=== PATIENT | male | born 1935 | race Caucasian/White ===

== ENCOUNTER 2017-12-31 20:12 | Inpatient (IN) | payer OTHER ==
[~2017-12-31] VITALS: Ht 175.3 cm; Wt 104.4 kg
[2017-12-31] MEDS ORDERED: ALBUT/IPRATROP 3MG/0.5MG NEB 3 ML VIAL INH STA (20:23)
[2017-12-31] MEDS ORDERED: ACETAMINOPHEN 500 MG TAB PO STA (20:23)
--- NOTE | 2017-12-31 20:34 | EMERGENCY ROOM VISIT NOTE ---
History Report prepared by Sandie: Gagan Arndt Under the Supervision of: Dr. Sam Billings D.O. First contact with patient: 20:18 Chief Complaint: LETHARGIC Stated Complaint: SHAKING,LETHARGIC History of Present Illness The patient is a 82 year old male who presents to the Emergency Room with complaints of an episode of shaking that occurred today. He states that he used a rescue inhaler once today. The patient complains of shortness of breath and coughing with sputum. The patient denies nausea, vomiting, chest pain, and leg swelling. The patient notes that he has a history of pneumonia within the past two years, COPD, and hyperlipemia. He denies the use of blood thinners. The patient notes that he smokes cigars. Source of History: patient Onset: Today Position: arm (bilateral) Quality: other (shaking) Timing: other (episode) Associated Symptoms: + cough (with sputum), + SOB, No chest pain, No nausea , No vomiting Note: The patient denies leg swelling. Review of Systems See HPI for pertinent positives & negatives. A total of 10 systems reviewed and were otherwise negative. Past Medical & Surgical Medical Problems: (1) COPD (chronic obstructive pulmonary disease) (2) Hyperlipidemia (3) Pneumonia (4) Sepsis Social History Smoking Status: Current Some Day Smoker Current/Historical Medications Scheduled Atorvastatin (Lipitor), 20 MG PO DAILY Budesonide/Formoterol Fumarate (Symbicort 80/4.5 Inhaler), 2 PUFFS INH BID Scheduled PRN Albuterol Hfa (Ventolin Hfa), 2 PUFFS INH Q6H PRN for SOB/Wheezing Allergies Coded Allergies: No Known Allergies (Unverified , 12/31/17) Physical Exam Vital Signs Date Time Temp Pulse Resp B/P (MAP) Pulse Ox O2 Delivery O2 Flow Rate FiO2 12/31/17 23:19 87 17 102/63 95 Room Air 12/31/17 21:59 110 24 120/75 93 Room Air 12/31/17 21:20 37.7 128 24 113/70 93 Room Air 12/31/17 20:30 93 Room Air 12/31/17 20:28 123 12/31/17 20:13 38.5 126 18 124/64 94 Room Air Physical Exam GENERAL: Patient is awake and alert. Mildly anxious. Overall comfortable. EYES: The conjunctivae are clear. The pupils are round and reactive. EARS, NOSE, MOUTH AND THROAT: The nose is without any evidence of any deformity. Mucous membranes are moist. Tongue is midline NECK: The neck is nontender and supple. RESPIRATORY: Diminished throughout, left greater than right. Expiratory wheezes noted in both upper lung field. CARDIOVASCULAR: Tachycardic. Regular rhythm. No definitive murmur noted to osculation. GASTROINTESTINAL: The abdomen is soft. Bowel sounds are present in all quadrants. Abdomen is nontender. MUSCULOSKELETAL/EXTREMITIES: There is no evidence of gross deformity. Full range of motion is noted in the hips and shoulders. SKIN: There is no obvious evidence of any rash. There are no petechiae, pallor or cyanosis noted. NEUROLOGIC: Patient is awake alert and oriented x3. Medical Decision & Procedures ER Provider Diagnostic Interpretation: Radiology results as stated below per my review and radiologist interpretation: CHEST ONE VIEW PORTABLE CLINICAL HISTORY: Sepsis. COMPARISON STUDY: No previous studies for comparison. FINDINGS: Lung volumes are normal. There is no pneumothorax or pleural effusion. There is mild reticulonodular interstitial thickening. No consolidation is identified. Mild cardiomegaly is noted. Patient is mildly rotated. Mediastinal contours are unremarkable. IMPRESSION: 1. No consolidation identified. 2. Mild reticulonodular interstitial thickening. This finding is nonspecific and may be chronic however mild pulmonary edema edema or an infectious process could appear similar. Radiographic follow up is recommended. 3. Mild cardiomegaly. Electronically signed by: Davion Barragan M.D. 12/31/2017 8:43 PM Dictated Date/Time: 12/31/2017 8:42 PM Laboratory Results Test 12/31/17 20:40 12/31/17 20:50 12/31/17 20:57 12/31/17 21:02 Urine Color ORANGE Urine Appearance TURBID (CLEAR) Urine pH 5.0 (4.5-7.5) Urine Specific [place] 1.025 (1.000-1.030) Urine Protein 1+ (NEG) Urine Glucose (UA) NEG (NEG) Urine Ketones TRACE (NEG) Urine Occult Blood 1+ (NEG) Urine Nitrite POS (NEG) Urine Bilirubin NEG (NEG) Urine Urobilinogen NEG (NEG) Urine Leukocyte Esterase MODERATE (NEG) Urine WBC (Auto) >30 /hpf (0-5) Urine RBC (Auto) 5-10 /hpf (0-4) Urine Hyaline Casts (Auto) 5-10 /lpf (0-5) Urine Epithelial Cells (Auto) 20-30 /lpf (0-5) Urine Bacteria (Auto) 2+ (NEG) Erythrocyte Sedimentation Rate 42 mm/hr (0-14) Prothrombin Time 11.5 SECONDS (9.0-12.0) Prothromb Time International Ratio 1.1 (0.9-1.1) Activated Partial Thromboplast Time 27.8 SECONDS (21.0-31.0) Partial Thromboplastin Ratio 1.1 Estimated Average Glucose 120 mg/dl Hemoglobin A1c 5.8 % (4.5-5.6) Total Bilirubin 1.7 mg/dl (0.2-1) Aspartate Amino Transf (AST/SGOT) 17 U/L (15-37) Alanine Aminotransferase (ALT/SGPT) 25 U/L (12-78) Alkaline Phosphatase 66 U/L (45-117) Total Creatine Kinase 115 U/L (39-308) Creatine Kinase MB < 1.0 ng/ml (0.5-3.6) Creatine Kinase MB Ratio (0-3.0) Troponin I < 0.015 ng/ml (0-0.045) C-Reactive Protein 14.80 mg/dl (0-0.29) Total Protein 7.9 gm/dl (6.4-8.2) Albumin 3.6 gm/dl (3.4-5.0) Globulin 4.3 gm/dl (2.5-4.0) Albumin/Globulin Ratio 0.8 (0.9-2) Lipase 56 U/L (73-393) Thyroid Stimulating Hormone (TSH) 2.250 uIu/ml (0.300-4.500) Bedside Lactic Acid Venous 1.49 mmol/L (0.90-1.70) Venous Blood pH 7.49 (7.36-7.41) Venous Blood Partial Pressure CO2 32 mmHg (38.0-50.0) Venous Blood Partial Pressure O2 42 mmHg Venous Blood HCO3 23 mmol/L Venous Blood Oxygen Saturation 79.6 % Venous Blood Base Excess 0.8 mEq/L Laboratory results per my review. Medications Administered Medications (Trade) Dose Ordered Sig/Renata Route Start Time Stop Time Status Last Admin Dose Admin Acetaminophen (Tylenol Tab) 1,000 mg NOW STAT PO 12/31/17 20:23 12/31/17 20:24 DC 12/31/17 20:37 1,000 MG Albuterol/ Ipratropium (Duoneb) 3 ml NOW STAT INH 12/31/17 20:23 12/31/17 20:24 DC 12/31/17 20:36 3 ML Ceftriaxone Sodium (Rocephin Inj) 1 gm NOW STAT IV 12/31/17 21:07 12/31/17 21:08 DC 12/31/17 21:15 1 GM Sodium Chloride 1,000 ml @ 999 mls/hr Q1H1M STAT IV 12/31/17 21:24 12/31/17 22:24 DC 12/31/17 21:24 999 MLS/HR Magnesium Oxide (Mag-Ox Tab) 400 mg ONE STAT PO 12/31/17 21:50 12/31/17 21:51 DC 12/31/17 21:57 400 MG ECG Per My Interpretation Indication: SOB/dyspnea Rate (beats per minute): 138 Rhythm: sinus tachycardia Findings: other (Diffuse ST depression) Comparison ECG Date: no prior available ED Course 2019: The patient was evaluated in room C10. A complete history and physical examination were performed. 2219: Upon reevaluation, the patient is resting comfortably. I discussed results and treatment plan with him. He verbalizes agreement and understanding. I spoke with Dr. Rodriguez- [facility]. The patient will be evaluated for further management and care. Medical Decision Prior records/ancillary studies reviewed. Triage Nursing notes reviewed. Additional history obtained from the family. The patient's history was concerning for respiratory difficulties. Differential diagnosis: Etiologies such as infections, reactive airway disease, pneumonia, pneumothorax , COPD, CHF, cardiac ischemia, pulmonary embolism, musculoskeletal, gastrointestinal, as well as others were entertained. The patient is an 82-year-old male who presented to the emergency department for an evaluation of fever. The patient described an episode of chills that he had while he was with family members. His family member states he was having difficulty stopping the chills. He was found to have a fever in triage. The patient has a history of COPD and was complaining of cough but his chest x-ray does not appear to be consistent with pneumonia. He was started on IV antibiotics after his urinalysis appear to be consistent with urinary tract infection. I discussed the patient's laboratory and radiographic studies with him. He had persistent tachycardia despite being treated with IV fluids. I was very concerned this could represent an early bacteremia. This reason I discussed his case with the on-call [facility] hospitalist. They have agreed to evaluate patient in the emergency department for further management and disposition. The patient was reevaluated multiple times. Medication Reconcilliation Current Medication List: was personally reviewed by me Blood Pressure Screening Patient's blood pressure: Normal blood pressure Consults Time Called: [id number] Consulting Physician: Dr. [facility]- [facility]. Returned Call: [id number] 2218:I discussed the patient's case with I spoke with Dr. Rodriguez- [facility].. The patient will be evaluated for further management. Impression Primary Impression: UTI (urinary tract infection) Additional Impressions: Fever COPD exacerbation Tachycardia Scribe Attestation The scribe's documentation has been prepared under my direction and personally reviewed by me in its entirety. I confirm that the note above accurately reflects all work, treatment, procedures, and medical decision making performed by me. Departure Information Dispostion Being Evaluated By Hospitalist Referrals No Doctor, Assigned (PCP) Patient Instructions My [facility] Problem Qualifiers Primary Impression: UTI (urinary tract infection) Urinary tract infection type: acute pyelonephritis Qualified Codes: N10 - Acute pyelonephritis Additional Impressions: Fever Fever type: unspecified Qualified Codes: R50.9 - Fever, unspecified
--- NOTE | 2017-12-31 20:45 | DIAGNOSTIC IMAGING REPORT ---
CHEST ONE VIEW PORTABLE CLINICAL HISTORY: Sepsis. COMPARISON STUDY: No previous studies for comparison. FINDINGS: Lung volumes are normal. There is no pneumothorax or pleural effusion. There is mild reticulonodular interstitial thickening. No consolidation is identified. Mild cardiomegaly is noted. Patient is mildly rotated. Mediastinal contours are unremarkable. IMPRESSION: 1. No consolidation identified. 2. Mild reticulonodular interstitial thickening. This finding is nonspecific and may be chronic however mild pulmonary edema edema or an infectious process could appear similar. Radiographic follow up is recommended. 3. Mild cardiomegaly. Electronically signed by: Davion Barragan M.D. 12/31/2017 8:43 PM Dictated Date/Time: 12/31/2017 8:42 PM
[2017-12-31] MEDS ORDERED: VNTHFA/IN INH (21:06)
[2017-12-31] MEDS ORDERED: ATOR-22 PO (21:06)
[2017-12-31] MEDS ORDERED: SYMIN/8045 INH (21:06)
[2017-12-31] MEDS ORDERED: CEFTRIAXONE SOD INJ 1 GM ADDVIAL IV STA (21:07)
[2017-12-31 21:08] LABS: BASO % 0.2 %; BASO ABS # 0.02 K/uL (0-0.2); EOS % 0.2 %; EOS ABS # 0.02 K/uL (0-0.5); HEMATOCRIT 44.5 % (42-52); HEMOGLOBIN 15.6 g/dL (14.0-18.0); IG# 0.04 K/uL (0.00-0.02); LYMPH % 6.9 %; MEAN CELL VOLUME 88.6 fL (80-100); MEAN CORPUSCULAR HEMOGLOBIN 31.1 pg (25-34); MEAN CORPUSCULAR HGB CONC 35.1 g/dl (32-36); MEAN PLATELET VOLUME 10.2 fL (7.4-10.4); MONO % 7.7 %; MONO ABS # 0.89 K/uL (0.11-0.59); NEUT % 84.7 %; NEUT ABS # 9.86 K/uL (1.4-6.5); PLATELET COUNT 122 K/uL (130-400); RED CELL DISTRIBUTION WIDTH CV 13.5 % (11.5-14.5); RED CELL DISTRIBUTION WIDTH SD 44.2 fL (36.4-46.3); WHITE BLOOD COUNT 11.63 K/uL (4.8-10.8)
[2017-12-31 21:18] LABS: INR 1.1 (0.9-1.1); PTT PATIENT 27.8 SECONDS (21.0-31.0)
[2017-12-31] MEDS ORDERED: SODIUM CHLORIDE 0.9% 1000ML 1,000 ML IV STA (21:24)
[2017-12-31 21:31] LABS: ALBUMIN 3.6 gm/dl (3.4-5.0); ALKALINE PHOSPHATASE 66 U/L (45-117); ALT/SGPT 25 U/L (12-78); AST/SGOT 17 U/L (15-37); BLOOD UREA NITROGEN 34 mg/dl (7-18); CALCIUM 8.8 mg/dl (8.5-10.1); CARBON DIOXIDE 22 mmol/L (21-32); CKMB < 1.0 ng/ml (0.5-3.6); CREATININE 2.27 mg/dl (0.60-1.40); GLUCOSE 130 mg/dl (70-99); LIPASE 56 U/L (73-393); POTASSIUM 4.1 mmol/L (3.5-5.1); SODIUM 134 mmol/L (136-145); TOTAL PROTEIN 7.9 gm/dl (6.4-8.2)
[2017-12-31] MEDS ORDERED: MAGNESIUM OXIDE 400 MG TAB PO STA (21:50)
[2018-01-01] MEDS ORDERED: HYDROmorphone INJ 0.5 MG/0.5 ML SYR IV PRN (00:15)
[2018-01-01] MEDS ORDERED: PROCHLORPERAZINE INJ 5 MG in SYRINGE 4 ML IV PRN (00:15)
[2018-01-01] MEDS ORDERED: LEVALBUTEROL/IPRATROPIUM NEB INH PRN (00:15)
[2018-01-01] MEDS ORDERED: TRAMADOL HCL 50 MG TAB PO PRN (00:15)
[2018-01-01] MEDS ORDERED: SODIUM CHLORIDE 0.9% 1000ML 1,000 ML IV ONE (00:15)
[2018-01-01 01:00] VITALS: BP 116/69; PULSE 81; TEMP 36.6; O2SAT 93; Ht 175.3 cm; Wt 104.4 kg
[2018-01-01] MEDS ORDERED: PATIENT'S HEIGHT AND/OR WEIGHT NEEDED SCH (01:15)
[2018-01-01] MEDS ORDERED: LEVALBUTEROL 1.25MG/0.5ML NEB INH PRN (01:45)
[2018-01-01] MEDS ORDERED: IPRATROPIUM BROMIDE NEB SOLN 0.02% 2.5 ML VIAL INH PRN (01:45)
[2018-01-01] MEDS ORDERED: CEFEPIME IV 2,000 MG in SYRINGE 7.5 ML IV ONE (01:45)
--- NOTE | 2018-01-01 03:39 | HISTORY & PHYSICAL EXAMINATION ---
DATE OF ADMISSION: 12/31/2017 CHIEF COMPLAINT: Shaking PRIMARY CARE PHYSICIAN: Dr. Peace. HISTORY OF PRESENT ILLNESS: History obtained from patient, family, and records. Medical history is significant for hyperlipidemia, COPD, past tobacco abuse, chronic renal insufficiency (unknown baseline). Patient not feeling well in the last few days with dysuria, no hematuria, achy abdominal discomfort, gassy. No nausea, no emesis. Patient was eating ice cream with his girlfriend in his truck today when he had chills, noted to be shaking. No chest pain, no shortness of breath, no unusual cough symptoms. He was brought to the ER. Received Ceftriaxone for sepsis. MEDICAL HISTORY: As above. SURGERIES: Knee surgery. HOME MEDICATIONS: Include Ventolin, Lipitor, Symbicort. ALLERGIES: No known drug allergies. FAMILY HISTORY: Heart disease. PERSONAL AND SOCIAL HISTORY: Past tobacco abuse. Occasional alcoholic beverage intake. 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 REVIEW OF SYSTEMS: As per HPI, all 10 systems reviewed, all other ROS negative. PHYSICAL EXAMINATION: VITAL SIGNS: Blood pressure noted to be 113/70, pulse rate 126 later 90 RR 22 T 38.5 O2 sats 93 on room air GENERAL: Obese. Slightly anxious, in no respiratory distress. Slightly hard of hearing. SKIN: Normal color, warm. HEENT: Alopecia. Bunch palpebral conjunctivae, no ptosis. Dry mucosa. NECK: Short, supple. CHEST: Decreased effort. No tenderness. HEART: Regular rate and rhythm, no murmur. ABDOMEN: Some distention, nontender. EXTREMITIES: No LE edema. No gross deformities. No tenderness. NEUROLOGIC: Coherent. No gross focality except for mild hearing impairment. LABORATORY DATA: Hemoglobin was noted to be 15.6, WBC 11.6, platelet was noted to be 122. Sodium 134, potassium 4.0, BUN 30, creatinine 2.7, glucose 130, lactate was 1.49. UA, nitrite positive urine ketones. Chest x-ray showed interstitial thickening, cardiomegaly. ASSESSMENT: 1. Sepsis secondary to urinary tract infection. Rule out stone with abd discomfort 2. ARF, hx CRI as per patient (baseline unknown) 3. hyperlipidemia on statin therapy 4. COPD, past tobacco abuse. Pulmo status at baseline 5. Thrombocytopenia secondary to sepsis. 6. Hyperglycemia rule out DM PLAN: GMF CS, IV Cefepime for now. CT abdomen and pelvis. RE abdominal pain daily renal function. IVF check hemoglobin A1c, DVT prophylaxis, SCDs RE thrombocytopenia. Full code. MTDD
[2018-01-01 06:23] LABS: BASO % 0.2 %; BASO ABS # 0.02 K/uL (0-0.2); EOS % 0.5 %; EOS ABS # 0.06 K/uL (0-0.5); HEMATOCRIT 40.9 % (42-52); HEMOGLOBIN 13.4 g/dL (14.0-18.0); IG# 0.02 K/uL (0.00-0.02); LYMPH % 10.4 %; LYMPH ABS # 1.15 K/uL (1.2-3.4); MEAN CELL VOLUME 90.7 fL (80-100); MEAN CORPUSCULAR HEMOGLOBIN 29.7 pg (25-34); MEAN CORPUSCULAR HGB CONC 32.8 g/dl (32-36); MEAN PLATELET VOLUME 9.9 fL (7.4-10.4); MONO % 13.7 %; MONO ABS # 1.52 K/uL (0.11-0.59); NEUT ABS # 8.34 K/uL (1.4-6.5); PLATELET COUNT 107 K/uL (130-400); RED CELL DISTRIBUTION WIDTH CV 13.7 % (11.5-14.5); RED CELL DISTRIBUTION WIDTH SD 45.5 fL (36.4-46.3); WHITE BLOOD COUNT 11.11 K/uL (4.8-10.8)
--- NOTE | 2018-01-01 06:28 | DIAGNOSTIC IMAGING REPORT ---
ABD/PELVIS NO IV OR ORAL CONT CLINICAL HISTORY: 82 years-old Male presenting with abd pain/gas. TECHNIQUE: Multidetector CT of the abdomen and pelvis was performed without the use of intravenous contrast. IV contrast: None. A dose lowering technique was used consistent with the principles of ALARA (as low as reasonably achievable). COMPARISON: None. CT DOSE (mGy.cm): The estimated cumulative dose is 960.94 mGy.cm. FINDINGS: Engineering Administrator topogram: Unremarkable. Lung bases: Bronchial wall thickening. Trace interlobular septal thickening greater on the right. The pulmonary arteries are similar in diameter to the adjacent bronchi. Mosaic attenuation most prominent at the right lung base. Multichamber enlargement of the heart. Coronary artery and aortic valve calcification. No pericardial or pleural effusion. Liver: Normal morphology. Density consistent with hepatic steatosis. Biliary: No gross biliary ductal dilatation allowing for noncontrast technique. Gallbladder contains gallstones. Pancreas: Moderate parenchymal atrophy. Spleen: Normal noncontrast appearance. Adrenal glands: Normal noncontrast appearance. Kidneys and ureters: Nonspecific perinephric fat stranding. Normal noncontrast appearance. No nephrolithiasis. No hydronephrosis. Normal ureters. Bladder: Circumferential bladder wall thickening allowing for underdistention. Trace perivascular fat stranding. Pelvic organs: Prostate enlargement likely secondary to benign prostatic hyperplasia. Bowel: Diverticulosis of the sigmoid colon. No wall thickening or pericolonic inflammatory change. The appendix is normal. No bowel obstruction. Trace hilar hernia. Peritoneal cavity: No free fluid or intraperitoneal gas. Lymph nodes: No gross lymphadenopathy allowing for noncontrast technique. Vasculature: Atherosclerosis of the normal caliber abdominal aorta. Abdominal wall: Small fat-containing left inguinal hernia. Small fat-containing umbilical hernia. Musculoskeletal: Degenerative changes of the spine. Degenerative changes of the pubic symphysis and sacroiliac joints. IMPRESSION: 1. 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 Correlate with urinalysis to exclude cystitis. 2. Diverticulosis. No evidence of diverticulitis. 3. Cardiomegaly with mild congestive change greater in the right lung base than the left. Electronically signed by: Lenard Donaldson M.D. 01/01/2018 6:27 AM Dictated Date/Time: 01/01/2018 6:18 AM
[2018-01-01 06:50] LABS: CALCIUM 8.3 mg/dl (8.5-10.1); CREATININE 2.8 mg/dl (0.60-1.40); POTASSIUM 4.5 mmol/L (3.5-5.1)
[2018-01-01 06:58] LABS: HEMOGLOBIN A1C 5.8 % (4.5-5.6)
[2018-01-01 07:33] VITALS: BP 90/56; PULSE 70; TEMP 36.4; O2SAT 96
[2018-01-01] MEDS: ATORVASTATIN 20 MG TAB PO SCH (08:01)
[2018-01-01] MEDS: BUDESONIDE/FORMOTEROL FUMARATE 80/4.5 60 PUFFS/INHALER INH SCH ×2 (08:02→21:04)
[2018-01-01] MEDS ORDERED: CEFEPIME CONSULT ACTIVE PRN (09:00)
--- NOTE | 2018-01-01 14:38 | Progress Note ---
Medicine Progress Note Date & Time of Visit: Jan 01, 2018 at 14:38 . Subjective Admitted early this morning for urinary tract infection with sepsis. Feels better. Still experiencing urinary frequency and urgency, but no dysuria. . Objective Last 8 Hrs Date Time Temp Pulse Resp B/P (MAP) Pulse Ox O2 Delivery O2 Flow Rate FiO2 01/01/18 07:51 Room Air 01/01/18 07:33 36.4 70 20 90/56 (67) 96 Room Air Physical Exam: General- no distress Lungs- clear to auscultation; no respiratory distress Cardiovascular- RRR; no murmur or gallop appreciated; no JVD; no pretibial edema Abdomen- + bowel sounds, soft, nontender Extremities- no cyanosis; no calf tenderness Neuro- alert, oriented Skin- warm & dry . Laboratory Results: Last 24 Hours Test 12/31/17 20:40 12/31/17 20:50 12/31/17 20:57 12/31/17 21:02 Urine Color ORANGE Urine Appearance TURBID Urine pH 5.0 Urine Specific [place] 1.025 Urine Protein 1+ Urine Glucose (UA) NEG Urine Ketones TRACE Urine Occult Blood 1+ Urine Nitrite POS Urine Bilirubin NEG Urine Urobilinogen NEG Urine Leukocyte Esterase MODERATE Urine WBC (Auto) >30 /hpf Urine RBC (Auto) 5-10 /hpf Urine Hyaline Casts (Auto) 5-10 /lpf Urine Epithelial Cells (Auto) 20-30 /lpf Urine Bacteria (Auto) 2+ White Blood Count 11.63 K/uL Red Blood Count 5.02 M/uL Hemoglobin 15.6 g/dL Hematocrit 44.5 % Mean Corpuscular Volume 88.6 fL Mean Corpuscular Hemoglobin 31.1 pg Mean Corpuscular Hemoglobin Concent 35.1 g/dl Platelet Count 122 K/uL Mean Platelet Volume 10.2 fL Neutrophils (%) (Auto) 84.7 % Lymphocytes (%) (Auto) 6.9 % Monocytes (%) (Auto) 7.7 % Eosinophils (%) (Auto) 0.2 % Basophils (%) (Auto) 0.2 % Neutrophils # (Auto) 9.86 K/uL Lymphocytes # (Auto) 0.80 K/uL Monocytes # (Auto) 0.89 K/uL Eosinophils # (Auto) 0.02 K/uL Basophils # (Auto) 0.02 K/uL RDW Standard Deviation 44.2 fL RDW Coefficient of Variation 13.5 % Immature Granulocyte % (Auto) 0.3 % Immature Granulocyte # (Auto) 0.04 K/uL Erythrocyte Sedimentation Rate 42 mm/hr Prothrombin Time 11.5 SECONDS Prothromb Time International Ratio 1.1 Activated Partial Thromboplast Time 27.8 SECONDS Partial Thromboplastin Ratio 1.1 Sodium Level 134 mmol/L Potassium Level 4.1 mmol/L Chloride Level 102 mmol/L Carbon Dioxide Level 22 mmol/L Anion Gap 11.0 mmol/L Blood Urea Nitrogen 34 mg/dl Creatinine 2.27 mg/dl Estimated GFR () 30.2 Estimated GFR (Non- 26.1 BUN/Creatinine Ratio 15.0 Random Glucose 130 mg/dl Estimated Average Glucose 120 mg/dl Hemoglobin A1c 5.8 % Calcium Level 8.8 mg/dl Magnesium Level 1.7 mg/dl Total Bilirubin 1.7 mg/dl Aspartate Amino Transf (AST/SGOT) 17 U/L Alanine Aminotransferase (ALT/SGPT) 25 U/L Alkaline Phosphatase 66 U/L Total Creatine Kinase 115 U/L Creatine Kinase MB < 1.0 ng/ml Creatine Kinase MB Ratio Troponin I < 0.015 ng/ml C-Reactive Protein 14.80 mg/dl Total Protein 7.9 gm/dl Albumin 3.6 gm/dl Globulin 4.3 gm/dl Albumin/Globulin Ratio 0.8 Lipase 56 U/L Thyroid Stimulating Hormone (TSH) 2.250 uIu/ml Bedside Lactic Acid Venous 1.49 mmol/L Venous Blood pH 7.49 Venous Blood Partial Pressure CO2 32 mmHg Venous Blood Partial Pressure O2 42 mmHg Venous Blood HCO3 23 mmol/L Venous Blood Oxygen Saturation 79.6 % Venous Blood Base Excess 0.8 mEq/L Test 01/01/18 06:05 White Blood Count 11.11 K/uL Red Blood Count 4.51 M/uL Hemoglobin 13.4 g/dL Hematocrit 40.9 % Mean Corpuscular Volume 90.7 fL Mean Corpuscular Hemoglobin 29.7 pg Mean Corpuscular Hemoglobin Concent 32.8 g/dl Platelet Count 107 K/uL Mean Platelet Volume 9.9 fL Neutrophils (%) (Auto) 75.0 % Lymphocytes (%) (Auto) 10.4 % Monocytes (%) (Auto) 13.7 % Eosinophils (%) (Auto) 0.5 % Basophils (%) (Auto) 0.2 % Neutrophils # (Auto) 8.34 K/uL Lymphocytes # (Auto) 1.15 K/uL Monocytes # (Auto) 1.52 K/uL Eosinophils # (Auto) 0.06 K/uL Basophils # (Auto) 0.02 K/uL RDW Standard Deviation 45.5 fL RDW Coefficient of Variation 13.7 % Immature Granulocyte % (Auto) 0.2 % Immature Granulocyte # (Auto) 0.02 K/uL Sodium Level 137 mmol/L Potassium Level 4.5 mmol/L Chloride Level 104 mmol/L Carbon Dioxide Level 27 mmol/L Anion Gap 6.0 mmol/L Blood Urea Nitrogen 41 mg/dl Creatinine 2.80 mg/dl Est Creatinine Clear Calc Drug Dose 24.6 ml/min Estimated GFR () 23.5 Estimated GFR (Non- 20.2 BUN/Creatinine Ratio 14.7 Random Glucose 111 mg/dl Calcium Level 8.3 mg/dl Magnesium Level 1.9 mg/dl Date/Time Source Procedure Growth Status 12/31/17 21:02 Blood Blood Culture - Preliminary Gram Negative Bacilli Resulted 12/31/17 20:50 Blood Blood Culture Pending Received 12/31/17 20:40 Urine , Clean Catch Urine Culture - Preliminary Gram Negative Bacilli Resulted Assessment & Plan SEPSIS / UTI Urine and 1 out of 2 blood cultures growing gram-negative rods. Suspect prostatitis. Hemodynamically stable. Continue cefepime pending culture results. Check postvoid residuals. . Current Inpatient Medications: Current Inpatient Medications Medications (Trade) Dose Ordered Sig/Renata Route Start Time Stop Time Status Last Admin Dose Admin Acetaminophen (Tylenol Tab) 650 mg Q4H PRN PO 01/01/18 00:15 01/31/18 00:14 Cefepime HCl (Consult) 1 ea UD PRN N/A 01/01/18 09:00 01/31/18 08:59 Hydromorphone HCl (Dilaudid Inj) 0.5 mg Q3H PRN IV 01/01/18 00:15 01/15/18 00:14 Tramadol HCl (Ultram Tab) 25 mg Q6H PRN PO 01/01/18 00:15 01/31/18 00:14 Prochlorperazine Edisylate 5 mg/ Syringe 5 ml @ 5 mls/min Q6H PRN IV 01/01/18 00:15 01/31/18 00:14 Atorvastatin Calcium (Lipitor Tab) 20 mg DAILY PO 01/01/18 09:00 01/31/18 08:59 01/01/18 08:01 20 MG Budesonide/ Formoterol Fumarate (Symbicort 80/ 4.5 Inh) 2 puffs BID INH 01/01/18 09:00 01/31/18 08:59 01/01/18 08:02 2 PUFFS Ipratropium [place] (Atrovent 0.02% 0.5MG/2.5ML Neb) 0.5 mg Q4H PRN INH 01/01/18 01:45 01/31/18 01:44 Levalbuterol (Xopenex 1.25MG/ 0.5ML Neb) 1.25 mg Q4H PRN INH 01/01/18 01:45 01/31/18 01:44 Cefepime HCl 1000 mg/Syringe 11 ml @ 5.5 mls/min Q24H IV 01/02/18 04:00 01/12/18 03:59
[2018-01-01 14:40] VITALS: TEMP 38
[2018-01-01] MEDS: ACETAMINOPHEN 325 MG TAB PO PRN (14:43)
[2018-01-01 15:47] VITALS: BP 135/74; PULSE 92; TEMP 38; O2SAT 91
[2018-01-01 16:25] VITALS: TEMP 37.6
[2018-01-01] MEDS: TAMSULOSIN HCL 0.4 MG CAP PO SCH (21:04)
[2018-01-01 23:18] VITALS: BP 102/64; PULSE 68; TEMP 37.4; O2SAT 94
[2018-01-02] MEDS ORDERED: CEFEPIME IV 2,000 MG in SYRINGE 7.5 ML IV SCH (02:00)
[2018-01-02] MEDS ORDERED: CEFEPIME IV 1,000 MG in SYRINGE 0 ML IV SCH (04:00)
[2018-01-02 07:00] VITALS: BP 100/62; PULSE 67; TEMP 36.9; O2SAT 96
[2018-01-02 07:18] LABS: CALCIUM 8.3 mg/dl (8.5-10.1); CREATININE 2.53 mg/dl (0.60-1.40); POTASSIUM 4.3 mmol/L (3.5-5.1)
[2018-01-02] MEDS: BUDESONIDE/FORMOTEROL FUMARATE 80/4.5 60 PUFFS/INHALER INH SCH ×2 (08:02→20:27)
[2018-01-02] MEDS: ATORVASTATIN 20 MG TAB PO SCH (08:02)
[2018-01-02 14:59] VITALS: BP 137/73; PULSE 103; TEMP 37.8; O2SAT 96
[2018-01-02] MEDS: ACETAMINOPHEN 325 MG TAB PO PRN (15:13)
[2018-01-02 16:35] VITALS: TEMP 37.6
--- NOTE | 2018-01-02 17:40 | Progress Note ---
Medicine Progress Note Date & Time of Visit: Jan 02, 2018 at 10:40 . Subjective CC: Follow-up visit for sepsis. HPI: Feels better. Had some fever and chills last night, but not as intense as before. Dysuria, urgency, hesitancy improved. No flank pain or hematuria. ROS: General- as noted above in HPI Resp- no cough; no shortness of breath Cardiac- no chest pain, no edema GI- no nausea, no vomiting, no diarrhea, no constipation - as noted above in HPI . Objective Last 8 Hrs Date Time Temp Pulse Resp B/P (MAP) Pulse Ox O2 Delivery O2 Flow Rate FiO2 01/02/18 16:35 37.6 01/02/18 16:00 Room Air 01/02/18 14:59 37.8 103 20 137/73 (94) 96 Room Air Physical Exam: General- lying in bed; no distress Lungs- clear to auscultation; no respiratory distress Cardiovascular- RRR; no murmur or gallop appreciated; no JVD; no pretibial edema Abdomen- + bowel sounds, soft, nontender Extremities- no cyanosis; no calf tenderness Neuro- alert, oriented Skin- warm & dry . Laboratory Results: Last 24 Hours Test 01/02/18 06:34 Sodium Level 137 mmol/L Potassium Level 4.3 mmol/L Chloride Level 106 mmol/L Carbon Dioxide Level 22 mmol/L Anion Gap 9.0 mmol/L Blood Urea Nitrogen 39 mg/dl Creatinine 2.53 mg/dl Est Creatinine Clear Calc Drug Dose 27.3 ml/min Estimated GFR () 26.5 Estimated GFR (Non- 22.9 BUN/Creatinine Ratio 15.3 Random Glucose 112 mg/dl Calcium Level 8.3 mg/dl Assessment & Plan SEPSIS / UTI Presented with fever, chills, dysuria. Met criteria for sepsis per current CMS criteria- fever, tachycardia. WBC was 11,630. Lactate was 1.49. Hemodynamically stable. Blood and urine cultures obtained. Initially received broad spectrum antibiotic coverage with ceftriaxone, then cefepime. Urine growing E coli, pansensitive. 2 out of 2 blood cultures growing gram-negative rods, ID pending. Suspect prostatitis. Hemodynamically stable. Continue cefepime pending blood culture results. ACUTE KIDNEY INJURY Serum creatinine 2.27 at time of admission and mike as high as 2.8. Probable acute kidney injury secondary to sepsis. Serum creatinine today = 2.53. Follow. PROSTATOMEGALY CT demonstrated enlarged prostate with findings suggesting chronic bladder obstruction. Hydronephrosis not noted. Started on tamsulosin with improvement of urinary urgency and frequency. No significant postvoid residual noted on bedside ultrasounds. Outpatient follow-up with Urology recommended. THROMBOCYTOPENIA Platelet count 122,000 at time of admission, repeat 107,000. Thrombocytopenia probably secondary to sepsis. Follow. COPD Stable. Continue Symbicort and albuterol. ABNORMAL CHEST X-RAY Chest x-ray showed mild cardiomegaly and interstitial prominence. No signs/symptoms of CHF. VTE PROPHYLAXIS No anticoagulants in light of thrombocytopenia. SCD's. Ambulate. DISPOSITION Expected discharge to home. Medical follow-up with Dr. Peace. . Current Inpatient Medications: Current Inpatient Medications Medications (Trade) Dose Ordered Sig/Renata Route Start Time Stop Time Status Last Admin Dose Admin Acetaminophen (Tylenol Tab) 650 mg Q4H PRN PO 01/01/18 00:15 01/31/18 00:14 01/02/18 15:13 650 MG Cefepime HCl (Consult) 1 ea UD PRN N/A 01/01/18 09:00 01/31/18 08:59 Hydromorphone HCl (Dilaudid Inj) 0.5 mg Q3H PRN IV 01/01/18 00:15 01/15/18 00:14 Tramadol HCl (Ultram Tab) 25 mg Q6H PRN PO 01/01/18 00:15 01/31/18 00:14 Prochlorperazine Edisylate 5 mg/ Syringe 5 ml @ 5 mls/min Q6H PRN IV 01/01/18 00:15 01/31/18 00:14 Atorvastatin Calcium (Lipitor Tab) 20 mg DAILY PO 01/01/18 09:00 01/31/18 08:59 01/02/18 08:02 20 MG Budesonide/ Formoterol Fumarate (Symbicort 80/ 4.5 Inh) 2 puffs BID INH 01/01/18 09:00 01/31/18 08:59 01/02/18 08:02 2 PUFFS Ipratropium [place] (Atrovent 0.02% 0.5MG/2.5ML Neb) 0.5 mg Q4H PRN INH 01/01/18 01:45 01/31/18 01:44 Levalbuterol (Xopenex 1.25MG/ 0.5ML Neb) 1.25 mg Q4H PRN INH 01/01/18 01:45 01/31/18 01:44 Cefepime HCl 1000 mg/Syringe 11 ml @ 5.5 mls/min Q24H IV 01/02/18 04:00 01/12/18 03:59 01/02/18 03:33 5.5 MLS/MIN Tamsulosin HCl (Flomax Cap) 0.4 mg HS PO 01/01/18 21:00 01/31/18 20:59 01/01/18 21:04 0.4 MG
[2018-01-02] MEDS ORDERED: PANTOprazole SOD 40 MG TAB PO ONE (20:15)
[2018-01-02] MEDS: TAMSULOSIN HCL 0.4 MG CAP PO SCH (20:28)
[2018-01-02] MEDS ORDERED: CEFEPIME IV 1,000 MG in SYRINGE 0 ML IV ONE (22:00)
[2018-01-02] MEDS ORDERED: CEFEPIME IV 1,000 MG in DEXTROSE 5% 100ML 100 ML IV ONE (22:00)
[2018-01-02 23:12] VITALS: BP 127/76; PULSE 72; TEMP 37.1; O2SAT 96
[2018-01-03 06:49] LABS: HEMATOCRIT 39.7 % (42-52); HEMOGLOBIN 13.5 g/dL (14.0-18.0); MEAN CORPUSCULAR HEMOGLOBIN 30.3 pg (25-34); MEAN PLATELET VOLUME 9.9 fL (7.4-10.4); PLATELET COUNT 111 K/uL (130-400); RED CELL DISTRIBUTION WIDTH CV 13.3 % (11.5-14.5); RED CELL DISTRIBUTION WIDTH SD 43.5 fL (36.4-46.3); WHITE BLOOD COUNT 6.22 K/uL (4.8-10.8)
--- NOTE | 2018-01-03 06:51 | Clinical Documentation Query ---
CLINICAL DOCUMENTATION QUERY Dr. DE LEON, The diagnosis of suspected prostatitis appears in the clinical documentation. For accurate ICD 10 code assignment, please indicate the appropriate acuity level: In your clinical opinion is this patient being managed for: ( x ) Acute prostatitis ( ) Prostatitis (not acute) ( ) Not Agree ( ) Other explanation of clinical findings (No explanation is considered a No Response) ( ) Unable to determine ( ) Need to Discuss (Phone CDS or qliq) (No discussion is considered a No Response) Please clarify and document your clinical opinion in the progress notes and discharge summary. Terms such as "probable", "suspected", "likely", "questionable", "possible", or "still to be ruled out" are acceptable. IF IN AGREEMENT, YOU MUST DOCUMENT ABOVE DIAGNOSTIC STATEMENT IN DAILY PROGRESS NOTES AND DISCHARGE SUMMARY. This document is not part of the patient's record. Thank You, Heather Gauthier, RN [phone]
[2018-01-03 07:25] VITALS: BP 116/84; PULSE 79; TEMP 37; O2SAT 95
[2018-01-03 07:30] LABS: CALCIUM 8.4 mg/dl (8.5-10.1); CREATININE 2.39 mg/dl (0.60-1.40); POTASSIUM 4.3 mmol/L (3.5-5.1)
[2018-01-03] MEDS: ATORVASTATIN 20 MG TAB PO SCH (08:15)
[2018-01-03] MEDS: BUDESONIDE/FORMOTEROL FUMARATE 80/4.5 60 PUFFS/INHALER INH SCH (08:15)
[2018-01-03] MEDS ORDERED: CIPROFLOXACIN 500 MG TAB PO SCH (09:00)
[2018-01-03] MEDS ORDERED: TAMS0.4C38 PO (10:55)
[2018-01-03] MEDS ORDERED: CPR500 PO (10:55)
--- NOTE | 2018-01-03 11:07 | Discharge Instructions ---
Discharge Instructions Date of Service Jan 03, 2018. Admission Reason for Admission: fever, chills . Discharge Discharge Diagnosis / Problem: sepsis due to bladder infection and prostate infection Discharge Goals Goal(s): Decrease discomfort, Improve disease control Activity Recommendations Activity Limitations: resume your previous activity . Instructions / Follow-Up Instructions / Follow-Up APPOINTMENTS: PRIMARY CARE Dr. Peace Please call his office for an appointment to be rechecked later this week. UROLOGY Please ask Dr. Peace to make a referral for you to see a Urologist about your enlarged prostate. OTHER INSTRUCTIONS: You were pretty sick because of an infection in your bladder and prostate. It can take a while for prostate infections to clear up. Take ciprofloxacin (Cipro) 500 mg twice a day until gone. You were having problems emptying your bladder because your prostate is enlarged. Tamsulosin (Flomax) can help. Take 1 pill at bed time. Any antibiotic can cause diarrhea. Eating yogurt can help prevent it. Call your doctors office if you have diarrhea 3 or more times a day. Your kidney function was not normal, but was improving by the day of discharge. Please have Dr. Peace watch your kidney tests and consider seeing a kidney specialist if things don't get better. Best to avoid medications like ibuprofen (Advil or Motrin) or naproxen (Aleve) because they can hurt your kidneys. Seek medical attention if you have: * temperature above 101 * chest pain or trouble breathing * abdominal pain, nausea, vomiting * diarrhea, dark stools or bloody stools * any unanswered questions or concerns Call 911 if symptoms are severe. Call if you have any questions or problems. My cell # is [phone]. You can also reach a [facility] hospitalist on duty at [facility] 24 hours a day by calling [phone]. Please take good care of yourself. Darren Maria . Current Hospital Diet Patient's current hospital diet: AHA Diet (Heart Healthy) Discharge Diet Recommended Diet: AHA Diet (Heart Healthy) Procedures Procedures Performed: CT scan showed enlarged prostate and diverticulosis. Pending Studies Studies pending at discharge: no Laboratory Results Hemoglobin A1c Test 12/31/17 20:50 Range/Units Estimated Average Glucose 120 mg/dl Hemoglobin A1c 5.8 H 4.5-5.6 % Medical Emergencies . Who to Call and When: Medical Emergencies: If at any time you feel your situation is an emergency, please call 911 immediately. . Non-Emergent Contact Non-Emergency issues call your: Primary Care Provider, Hospital Doctor . . "Provider Documentation" section prepared by Darren Maria. .
--- NOTE | 2018-01-03 11:16 | Progress Note ---
Medicine Progress Note Date & Time of Visit: Jan 03, 2018 at 10:30 . Subjective CC: Follow-up visit for sepsis. HPI: Feels better. Low grade temp last night, but no subjective fever or chills. Dysuria, urgency, hesitancy resolved. No flank pain or hematuria. Ambulating. ROS: General- as noted above in HPI Resp- no cough; no shortness of breath Cardiac- no chest pain, no edema GI- no nausea, no vomiting, no diarrhea - as noted above in HPI . Objective Last 8 Hrs Date Time Temp Pulse Resp B/P (MAP) Pulse Ox O2 Delivery O2 Flow Rate FiO2 01/03/18 07:37 Room Air 01/03/18 07:25 37.0 79 18 116/84 (95) 95 Room Air Physical Exam: General- sitting in chair; no distress Lungs- clear to auscultation; no respiratory distress Cardiovascular- RRR; no murmur or gallop appreciated; no JVD; no pretibial edema Abdomen- + bowel sounds, soft, nontender Back- no CVAT Extremities- no cyanosis; no calf tenderness Neuro- alert, oriented Skin- warm & dry . Laboratory Results: Last 24 Hours Test 01/03/18 06:36 01/03/18 06:37 Sodium Level 138 mmol/L Potassium Level 4.3 mmol/L Chloride Level 107 mmol/L Carbon Dioxide Level 22 mmol/L Anion Gap 9.0 mmol/L Blood Urea Nitrogen 37 mg/dl Creatinine 2.39 mg/dl Est Creatinine Clear Calc Drug Dose 28.9 ml/min Estimated GFR () 28.4 Estimated GFR (Non- 24.5 BUN/Creatinine Ratio 15.4 Random Glucose 113 mg/dl Calcium Level 8.4 mg/dl White Blood Count 6.22 K/uL Red Blood Count 4.46 M/uL Hemoglobin 13.5 g/dL Hematocrit 39.7 % Mean Corpuscular Volume 89.0 fL Mean Corpuscular Hemoglobin 30.3 pg Mean Corpuscular Hemoglobin Concent 34.0 g/dl RDW Standard Deviation 43.5 fL RDW Coefficient of Variation 13.3 % Platelet Count 111 K/uL Mean Platelet Volume 9.9 fL Assessment & Plan SEPSIS / UTI Presented with fever, chills, dysuria. Met criteria for sepsis per current CMS criteria- fever, tachycardia. WBC was 11,630. Lactate was 1.49. Hemodynamically stable. Blood and urine cultures obtained. Initially received broad spectrum antibiotic coverage with ceftriaxone, then cefepime. Urine and blood cultures grew E coli, pansensitive. UTI- probably combination of acute cystitis + acute prostatitis. Clinically improved- temp, WBC down. Transitioned to oral therapy with ciprofloxacin. Discharge on ciprofloxacin 500 mg BID to complete 28 day course of antibiotic therapy. ACUTE KIDNEY INJURY Serum creatinine 2.27 at time of admission and mike as high as 2.8. Probable acute kidney injury secondary to sepsis. Serum creatinine today = 2.39. Follow. Consider outpatient referral to Nephrology if creatinine remains elevated. PROSTATOMEGALY CT demonstrated enlarged prostate with findings suggesting chronic bladder obstruction. Hydronephrosis not noted. Started on tamsulosin with improvement of urinary urgency and frequency. No significant postvoid residual noted on bedside ultrasounds. Outpatient follow-up with Urology recommended. THROMBOCYTOPENIA Platelet count 122,000 at time of admission, repeat 107,000, 111,000. Thrombocytopenia probably secondary to sepsis. Follow. COPD Stable. Continue Symbicort and albuterol. ABNORMAL CHEST X-RAY Chest x-ray and CT showed mild cardiomegaly and interstitial prominence. No signs/symptoms of CHF. Consider outpatient echocardiogram to further evaluate cardiomegaly. DIVERTICULOSIS Noted on CT. No evidence of diverticulitis. VTE PROPHYLAXIS No anticoagulants in light of thrombocytopenia. SCD's. Ambulating. DISPOSITION Discharge to home. Medical follow-up with Dr. Peace ([facility]) . Current Inpatient Medications: Current Inpatient Medications Medications (Trade) Dose Ordered Sig/[facility] Route Start Time Stop Time Status Last Admin Dose Admin Acetaminophen (Tylenol Tab) 650 mg Q4H PRN PO 01/01/18 00:15 01/31/18 00:14 01/02/18 15:13 650 MG Hydromorphone HCl (Dilaudid Inj) 0.5 mg Q3H PRN IV 01/01/18 00:15 01/15/18 00:14 Tramadol HCl (Ultram Tab) 25 mg Q6H PRN PO 01/01/18 00:15 01/31/18 00:14 Prochlorperazine Edisylate 5 mg/ Syringe 5 ml @ 5 mls/min Q6H PRN IV 01/01/18 00:15 01/31/18 00:14 Atorvastatin Calcium (Lipitor Tab) 20 mg DAILY PO 01/01/18 09:00 01/31/18 08:59 01/03/18 08:15 20 MG Budesonide/ Formoterol Fumarate (Symbicort 80/ 4.5 Inh) 2 puffs BID INH 01/01/18 09:00 01/31/18 08:59 01/03/18 08:15 2 PUFFS Ipratropium [place] (Atrovent 0.02% 0.5MG/2.5ML Neb) 0.5 mg Q4H PRN INH 01/01/18 01:45 01/31/18 01:44 Levalbuterol (Xopenex 1.25MG/ 0.5ML Neb) 1.25 mg Q4H PRN INH 01/01/18 01:45 01/31/18 01:44 Tamsulosin HCl (Flomax Cap) 0.4 mg HS PO 01/01/18 21:00 01/31/18 20:59 01/02/18 20:28 0.4 MG Ciprofloxacin (Cipro Tab) 500 mg BID PO 01/03/18 09:00 01/08/18 08:59 01/03/18 08:15 500 MG Pantoprazole Sodium (Protonix Tab) 40 mg HS PO 01/03/18 21:00 02/02/18 20:59
[2018-01-03 11:17] VITALS: BP 116/84; PULSE 79; TEMP 37; O2SAT 95
--- NOTE | 2018-01-03 11:23 | Discharge Summary ---
Discharge Summary Date of Service Jan 03, 2018. Discharge Summary Admission Date: Dec 31, 2017 at 23:43 Discharge Date: Jan 03, 2018 Discharge Disposition: Home Principal Diagnosis: sepsis secondary to acute cystitis and acute prostatitis . Secondary Diagnoses/Problems: OTHER ACUTE DIAGNOSES: acute kidney injury thrombocytopenia CHRONIC MEDICAL PROBLEMS: COPD diverticulosis dyslipidemia prostatomegaly . Procedures: CT abdomen and pelvis IV fluids IV meds . Pending Studies/Follow-Up: Please check basic metabolic profile and CBC in clinic. Please make referral to Urology re: prostatomegaly. . Medication Reconciliation New Medications: Tamsulosin Hcl (Flomax) 0.4 Mg Cap 0.4 MG PO HS, #30 CAP 5 Refills Ciprofloxacin (Ciprofloxacin HCl) 500 Mg Tab 500 MG PO BID, #50 TAB Continued Medications: Albuterol Hfa (Ventolin Hfa) 200 Puffs/26349 Mcg Aers 2 PUFFS INH Q6H PRN for SOB/Wheezing, #1 INHALER Atorvastatin (Lipitor) 20 Mg Tab 20 MG PO DAILY, TAB Budesonide/Formoterol Fumarate (Symbicort 80/4.5 Inhaler) [place] 2 PUFFS INH BID, INHALER Admission Information HPI (per Admitting provider): History obtained from patient, family, and records. Medical history is significant for hyperlipidemia, COPD, past tobacco abuse, chronic renal insufficiency (unknown baseline). Patient not feeling well in the last few days with dysuria, no hematuria, achy abdominal discomfort, gassy. No nausea, no emesis. Patient was eating ice cream with his girlfriend in his truck today when he had chills, noted to be shaking. No chest pain, no shortness of breath, no unusual cough symptoms. He was brought to the ER. Received Ceftriaxone for sepsis. . Physical Exam (per Admitting): VITAL SIGNS: Blood pressure noted to be 113/70, pulse rate 126 later 90 RR 22 T 38.5 O2 sats 93 on room air GENERAL: Obese. Slightly anxious, in no respiratory distress. Slightly hard of hearing. SKIN: Normal color, warm. HEENT: Alopecia. [place] palpebral conjunctivae, no ptosis. Dry mucosa. NECK: Short, supple. CHEST: Decreased effort. No tenderness. HEART: Regular rate and rhythm, no murmur. ABDOMEN: Some distention, nontender. EXTREMITIES: No LE edema. No gross deformities. No tenderness. NEUROLOGIC: Coherent. No gross focality except for mild hearing impairment. . Hospital Course SEPSIS / UTI Presented with fever, chills, dysuria. Met criteria for sepsis per current CMS criteria- fever, tachycardia. WBC was 11,630. Lactate was 1.49. Hemodynamically stable. Blood and urine cultures obtained. Initially received broad spectrum antibiotic coverage with ceftriaxone, then cefepime. Urine and blood cultures grew E coli, pansensitive. UTI- probably combination of acute cystitis + acute prostatitis. Clinically improved- temp, WBC down. Transitioned to oral therapy with ciprofloxacin. Discharge on ciprofloxacin 500 mg BID to complete 28 day course of antibiotic therapy. ACUTE KIDNEY INJURY Serum creatinine 2.27 at time of admission and mike as high as 2.8. Probable acute kidney injury secondary to sepsis. Serum creatinine today = 2.39. Follow. Consider outpatient referral to Nephrology if creatinine remains elevated. PROSTATOMEGALY CT demonstrated enlarged prostate with findings suggesting chronic bladder obstruction. Hydronephrosis not noted. Started on tamsulosin with improvement of urinary urgency and frequency. No significant postvoid residual noted on bedside ultrasounds. Outpatient follow-up with Urology recommended. THROMBOCYTOPENIA Platelet count 122,000 at time of admission, repeat 107,000, 111,000. Thrombocytopenia probably secondary to sepsis. Follow. COPD Stable. Continue Symbicort and albuterol. ABNORMAL CHEST X-RAY Chest x-ray and CT showed mild cardiomegaly and interstitial prominence. No signs/symptoms of CHF. Consider outpatient echocardiogram to further evaluate cardiomegaly. DIVERTICULOSIS Noted on CT. No evidence of diverticulitis. VTE PROPHYLAXIS No anticoagulants in light of thrombocytopenia. SCD's. Ambulating. DISPOSITION Discharge to home. Medical follow-up with Dr. Peace ([facility]) . Total time spent on discharge = 40 min. This includes examination of the patient, discharge planning, medication reconciliation, and communication with other providers. . Discharge Instructions Discharge Instructions Date of Service Jan 03, 2018. Admission Reason for Admission: fever, chills . Discharge Discharge Diagnosis / Problem: sepsis due to bladder infection and prostate infection Discharge Goals Goal(s): Decrease discomfort, Improve disease control Activity Recommendations Activity Limitations: resume your previous activity . Instructions / Follow-Up Instructions / Follow-Up APPOINTMENTS: PRIMARY CARE Dr. Peace Please call his office for an appointment to be rechecked later this week. UROLOGY Please ask Dr. Peace to make a referral for you to see a Urologist about your enlarged prostate. OTHER INSTRUCTIONS: You were pretty sick because of an infection in your bladder and prostate. It can take a while for prostate infections to clear up. Take ciprofloxacin (Cipro) 500 mg twice a day until gone. You were having problems emptying your bladder because your prostate is enlarged. Tamsulosin (Flomax) can help. Take 1 pill at bed time. Any antibiotic can cause diarrhea. Eating yogurt can help prevent it. Call your doctors office if you have diarrhea 3 or more times a day. Your kidney function was not normal, but was improving by the day of discharge. Please have Dr. Peace watch your kidney tests and consider seeing a kidney specialist if things don't get better. Best to avoid medications like ibuprofen (Advil or Motrin) or naproxen (Aleve) because they can hurt your kidneys. Seek medical attention if you have: * temperature above 101 * chest pain or trouble breathing * abdominal pain, nausea, vomiting * diarrhea, dark stools or bloody stools * any unanswered questions or concerns Call 911 if symptoms are severe. Call if you have any questions or problems. My cell # is [phone]. You can also reach a [facility] [address] [facility] hospitalist on duty at [facility] 24 hours a day by calling [phone]. Please take good care of yourself. Darren Maria . Current Hospital Diet Patient's current hospital diet: AHA Diet (Heart Healthy) Discharge Diet Recommended Diet: AHA Diet (Heart Healthy) Procedures Procedures Performed: CT scan showed enlarged prostate and diverticulosis. Pending Studies Studies pending at discharge: no Laboratory Results Hemoglobin A1c Test 12/31/17 20:50 Range/Units Estimated Average Glucose 120 mg/dl Hemoglobin A1c 5.8 H 4.5-5.6 % Medical Emergencies . Who to Call and When: Medical Emergencies: If at any time you feel your situation is an emergency, please call 911 immediately. . Non-Emergent Contact Non-Emergency issues call your: Primary Care Provider, Hospital Doctor . . "Provider Documentation" section prepared by Darren Maria. Additional Copies To Abraham Peace M.D., MD
[2018-01-03] MEDS ORDERED: PANTOprazole SOD 40 MG TAB PO SCH (21:00)
== END 2018-01-03 11:40 | disposition home or self-care (01) | DRG 872 ==
LOC: C.EDB 20:13 → C.MED 23:43 → ENRESERV 23:47
PROVIDERS: ADMIT Internal Medicine; ATTEND Hospitalist
DX: A41.9 Sepsis, unspecified organism (principal); N39.0 Urinary tract infection, site not specified; N17.9 Acute kidney failure, unspecified; N41.0 Acute prostatitis; R65.20 Severe sepsis without septic shock; J44.9 Chronic obstructive pulmonary disease, unspecified; E78.5 Hyperlipidemia, unspecified; R73.9 Hyperglycemia, unspecified; D69.59 Other secondary thrombocytopenia; Z79.899 Other long term (current) drug therapy; F17.200 Nicotine dependence, unspecified, uncomplicated